=== PATIENT | male | born 1950 | race Caucasian/White ===

== ENCOUNTER 2025-05-05 17:11 | Emergency (ER) | payer MEDICARE | END 2025-05-05 20:40 | LOC: NAV ERS 17:11 | DX: S51.012A Laceration without foreign body of left elbow, initial encounter (principal); E11.9 Type 2 diabetes mellitus without complications; I11.9 Hypertensive heart disease without heart failure; Z87.891 Personal history of nicotine dependence; Z79.82 Long term (current) use of aspirin; W19.XXXA Unspecified fall, initial encounter | CPT/HCPCS: 70450; 72125 ==